=== PATIENT | male | born 1990 | race Caucasian/White ===

== ENCOUNTER 2020-10-18 14:00 | Emergency (ER) | payer MEDICAID ==
[~2020-10-18] VITALS: Ht 175.3 cm; Wt 95.9 kg
[2020-10-18 14:02] VITALS: BP 139/80
== END 2020-10-18 15:06 | disposition home or self-care (01) ==
LOC: EMS 14:06
DX: L03.032 Cellulitis of left toe (principal); L03.031 Cellulitis of right toe
CPT/HCPCS: 99283

== ENCOUNTER 2021-02-07 11:43 | Emergency (ER) | payer MEDICAID ==
[~2021-02-07] VITALS: Ht 175.3 cm; Wt 90.9 kg
[2021-02-07 11:47] VITALS: BP 135/68
[2021-02-07 13:06] LABS: COVID AG,FIA SOURCE NASOPHARYNGEAL
== END 2021-02-07 14:04 | disposition home or self-care (01) ==
LOC: EMS 11:46
DX: S60.222A Contusion of left hand, initial encounter (principal); Z20.822 Contact with and (suspected) exposure to COVID-19; W19.XXXA Unspecified fall, initial encounter; Y93.89 Activity, other specified; Y92.89 Other specified places as the place of occurrence of the external cause; Y99.8 Other external cause status
CPT/HCPCS: 99284; 73130-TC; Z7502